=== PATIENT | female | born 1965 | race Caucasian/White ===

== ENCOUNTER → 2017-12-08 | Outpatient (CLI) | payer OTHER ==
[~2017-12-08] MED LIST: AMOX-559 PO; HCTZ; HYDR50TA35 PO; NEBI10TA4 PO; PHEN118S56 PO; SIMV-44 PO
--- NOTE | 2017-12-08 17:37 | RADIOLOGY IMAGING REPORT ---
[place] [facility] [place] NAME: Shelby Rollins : 1965 MR: [id number] V: [id number] EXAM DATE: ORDERING PHYSICIAN: SENIA SANTIAGO TECHNOLOGIST: Location: [facility] Patient: Shelby Rollins : 1965 Visit/Account:[id number] Date of Sevice: 12/08/2017 THYROID HISTORY: COMPARISON: None. FINDINGS: SIZE: Asymmetric enlargement right lobe. Right lobe: 2.0 x 2.8 x 5.4 cm Left lobe: 1.0 x 1.3 x 4.5 cm Isthmus: 2 mm PARENCHYMA: Homogeneous. NODULES: Right lobe: * Heterogeneous solid 3.8 cm nodule mid lobe. Left lobe: * Subcentimeter nodule without high suspicion sonographic features. Isthmus: * None discrete. VASCULARITY: Within normal limits. ADDITIONAL FINDINGS: None. IMPRESSION: 3.8 cm right thyroid nodule with low to intermediate suspicion sonographic features and warranting fu rther evaluation with ultrasound-guided fine-needle aspiration based on current EKTA guidelines. REFERENCE: 2015 [place] [employer] Management Guidelines for Adult Patients with Thyroid Nodules and D ifferentiated Thyroid Cancer: The [place] [employer] (EKTA) Guidelines Task Force on Thyroid Nodules and Differentiated Thyroid Cancer. SONOGRAPHIC PATTERNS: * Benign: Purely cystic nodules (no solid component); estimated risk of malignancy <1 percent; no bi opsy recommended. * Very Low Suspicion: Spongiform or partially cystic nodules without any of the sonographic features described in low, intermediate, or high suspicion patterns; estimated risk of malignancy <3 percent; consider FNA at > 2 cm (Observation without FNA is also a reasonable option). * Low Suspicion: Isoechoic or hyperechoic solid nodule, or partially cystic nodule with eccentric so lid areas, without microcalcification, irregular margin or ETE (extra-thyroidal extension), or taller than wide shape; estimated risk of malignancy 5-10 percent; recommend FNA at >1.5 cm. * Intermediate Suspicion: Hypoechoic solid nodule with smooth margins without microcalcifications, E TE (extra-thyroidal extension), or taller than wide shape; estimated risk of malignancy 10-20 percent ; recommend FNA at > 1 cm. * High Suspicion: Solid hypoechoic nodule or solid hypoechoic component of a partially cystic nodule with one or more of the following features: irregular margins (infiltrative, microlobulated), microc alcifications, taller than wide shape, rim calcifications with small extrusive soft tissue component, evidence of ETE (extra-thyroidal extension); estimated risk of malignancy >70-90 percent; recommend FNA at > 1 cm. NOTES: * Although a sonographically suspicious subcentimeter thyroid nodule without evidence of extrathyroi judy extension or sonographically suspicious lymph nodes may be observed with close sonographic follow -up rather than pursuing immediate FNA, patient age and preference may modify decision-making. * A > 50% interval increase in nodule volume and/or development of new suspicious sonographic featur es are felt to be a valid reasons for potential re-aspiration of a nodule previously shown to have be nign FNA cytology. Report Dictated By: Veto Escalante MD at 12/08/2017 5:32 PM Report E-Signed By: Veto Escalante MD at 12/08/2017 5:33 PM WSN:[id number]
== END ==
LOC: US 00:47
PROVIDERS: ATTEND Family Medicine
DX: E04.9 Nontoxic goiter, unspecified (principal)
CPT/HCPCS: 76536

== ENCOUNTER 2017-12-11 16:28 | Outpatient (RCR) | payer OTHER ==
[2017-12-11 16:38] LABS: INR 0.95
--- NOTE | 2017-12-15 17:02 | RADIOLOGY IMAGING REPORT ---
FACILITY: [facility] PATIENT NAME: Shelby Rollins : 1965 MR: [id number] V: [id number] EXAM DATE: ORDERING PHYSICIAN: SENIA SANTIAGO TECHNOLOGIST: Location: [facility] Patient: Shelby Rollins : 1965 Visit/Account:[id number] Date of Sevice: 12/15/2017 Exam type: THYROID BIOPSY FINE NEEDLE ASP History: Large right thyroid nodule Comparison: December 08, 2017. Findings: Informed consent was obtained. The right-sided the patient's neck was prepped and draped in usual st erile fashion. Local anesthesia was accomplished with 1% lidocaine. Under sonographic guidance four 25-gauge FNA biopsies were obtained through the large solid right thyroid nodule. Samples were give n to the manager pathology for slides and Affirma testing. The procedure was accomplished witho ut apparent complication. IMPRESSION: 1. Successful sonographically guided biopsy of the large solid right thyroid nodule Report Dictated By: Keyla Boyle MD at 12/15/2017 4:57 PM Report E-Signed By: Keyla Boyle MD at 12/15/2017 4:58 PM WSN:[id number]
== END 2017-12-15 18:00 | disposition home or self-care (01) ==
LOC: US 16:28 → EDSTATUS 12-15 16:28 → US 12-15 18:00
PROVIDERS: ATTEND Family Medicine
DX: E04.9 Nontoxic goiter, unspecified (principal); E04.1 Nontoxic single thyroid nodule
CPT/HCPCS: 10022; 36415; 76942; 85610; 88104; 88172